=== PATIENT | female | born 2000 | race Caucasian/White ===

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

== ENCOUNTER 2021-05-02 21:38 | Emergency (ER) | payer OTHER ==
[~2021-05-02] VITALS: Ht 149.9 cm; Wt 62.2 kg
[~2021-05-02 21:38] MED LIST changes: +METO5TAB55 PO
[2021-05-02 21:49] VITALS: BP 123/59
--- NOTE | 2021-05-02 22:20 | PHYS DOC ---
Past History Past Medical History: No Pertinent History, Other Additional Past Medical Histor: COVID + Past Surgical History: Alcohol Use: None Adult General Chief Complaint Chief Complaint: POST-OP PROBLEM HPI HPI Patient is a otherwise healthy 21-year-old female who presents for a wound check. States she had a 2 weeks ago and was told that she had dissolvable sutures and Steri-Strips in place. States she had a wound check earlier today with a circuit judge but noticed a tiny bit of bleeding around one of the suture sites and decided to come in. Denies any fevers, chest pain, shortness of breath, abdominal pain, nausea, vomiting. Denies any vaginal bleeding, discharge or pain. Review of Systems Review of Systems Review of systems otherwise unremarkable except noted in HPI Allergies Allergies Allergies Coded Allergies Type Severity Reaction Last Updated Verified No Known Drug Allergies 08/10/20 No Physical Exam Physical Exam Constitutional: Well developed, well nourished, no acute distress, non-toxic appearance. [] HENT: Normocephalic, atraumatic, Eyes: conjunctiva normal, no discharge. [] Cardiovascular:Heart rate regular rhythm, no murmur [] Lungs & Thorax: Bilateral breath sounds clear to auscultation [] Abdomen: scar with Steri-Strips in place, removed and surgical incision clean, dry and intact with no erythema, or palpable masses, soft, no tenderness, no masses, no pulsatile masses. [] Skin: Warm, dry, no erythema, no rash. [] Back: No tenderness, no CVA tenderness. [] Extremities: No tenderness, no cyanosis, no clubbing, ROM intact, no edema. [] Neurologic: Alert and oriented X 3, no focal deficits noted. [] Psychologic: Affect normal, judgement normal, mood normal. [] Current Patient Data Vital Signs Vital Signs Date Time Temp Pulse Resp B/P (MAP) Pulse Ox O2 Delivery O2 Flow Rate FiO2 05/02/21 21:49 97.8 76 18 123/59 (80) 98 Room Air EKG EKG [] Radiology/Procedures Radiology/Procedures [] Heart Score C/O Chest Pain: No Risk Factors: Risk Factors: DM, Current or recent (<one month) smoker, HTN, HLP, family history of CAD, obesity. Risk Scores: Risk Factors: DM, Current or recent (<one month) smoker, HTN, HLP, family history of CAD, obesity. Course & Med Decision Making Course & Med Decision Making Patient is a 21-year-old female who presents for wound check Vital signs not concerning. Physical exam noted above Reassured patient that wound looks clean, dry intact with no signs of infection. Advised to follow-up in the morning with her [employer] REPAIRER/surgeon to update on her ED visit and set up a follow-up as needed. Gave return precautions to the ED. Patient grateful, verbalized understanding and agreed with plan of discharge. [] Dragon Disclaimer Dragon Disclaimer This electronic medical record was generated, in whole or in part, using a voice recognition dictation system. Departure Departure: Impression: Primary Impression: Visit for wound check Disposition: HOME / SELF CARE / HOMELESS Condition: GOOD Referrals: CHANI SPIVEY MD (PCP) Patient Instructions: Wound Check Additional Instructions: Thank you for coming into the emergency department today and allowing us to take care of you. Please read the attached information carefully. As discussed, your wound looks clean, dry intact with no signs of infection or drainage. Please follow-up with your primary care physician or your surgeon, or even your circuit judge to discuss your ED visit and set up a follow-up visit. Please come back to the ED with new or concerning symptoms as we discussed. ELYSE ARCHER MD May 02, 2021 22:19
== END 2021-05-02 22:26 | disposition home or self-care (01) ==
LOC: ER 21:38
DX: Z48.01 Encounter for change or removal of surgical wound dressing (principal)
CPT/HCPCS: 99281-25

== ENCOUNTER 2021-05-16 10:08 | Emergency (ER) | payer OTHER ==
[~2021-05-16] VITALS: Ht 149.9 cm; Wt 63.7 kg
[2021-05-16 10:25] VITALS: BP 104/68
[2021-05-16] MEDS ORDERED: CEPH500C PO (11:50)
[2021-05-16] MEDS ORDERED: MUPI22OI2 TP (11:50)
--- NOTE | 2021-05-16 11:50 | PHYS DOC ---
Past History Past Medical History: No Pertinent History, Other Additional Past Medical Histor: COVID + (BRISA HUITRON APRN) Past Surgical History: (BRISA HUITRON APRN) Alcohol Use: None (BRISA HUITRON APRN) Adult General Chief Complaint Chief Complaint: POST-OP PROBLEM HPI HPI Patient is a 21-year-old female presents emergency department concerning an infection to her incision site she has noticed over the past week. Patient reports a malodorous drainage from her incision site. Patient fears it may be an infection. Patient reports having her baby by on April 172020, is currently breast-feeding, denies abdominal pain or discomfort, denies urinary pressure, increased urinary frequency, urinary burning. Patient denies vaginal discharge, denies STI concerns. Patient denies nausea or vomiting. Denies fevers or chills at home. Patient denies other physical complaints or physical concerns, denies allergies to medications, denies prescription medications. Reports her next OB appointment checkup is on June 012020. (BRISA HUITRON APRN) Review of Systems Review of Systems 14 body systems of review of systems have been reviewed. See HPI for pertinent positives and negative responses, otherwise all other systems are negative, nonpertinent or noncontributory. Constitutional: Negative except as outlined in HPI above. Skin: Negative except as outlined in HPI above. Eyes: Negative except as outlined in HPI above. HENT: Negative except as outlined in HPI above. Respiratory: Negative except as outlined in HPI above. Cardiovascular: Negative except as outlined in HPI above. GI: Negative except as outlined in HPI above. : Negative except as outlined in HPI above. Musculoskeletal: Negative except as outlined in HPI above. Integument: Negative except as outlined in HPI above. Neurologic: Negative except as outlined in HPI above. Endocrine: Negative except as outlined in HPI above. Lymphatic: Negative except as outlined in HPI above. Psychiatric: Negative except as outlined in HPI above. (BRISA HUITRON APRN) Allergies Allergies Allergies Coded Allergies Type Severity Reaction Last Updated Verified No Known Drug Allergies 08/10/20 No (BRISA HUITRON APRN) Physical Exam Physical Exam Constitutional: Well developed, well nourished, no acute distress, non-toxic appearance. 21-year-old female in no apparent distress. HENT: Normocephalic, atraumatic. Eyes: Conjunctiva normal, no discharge. Neck: Normal range of motion, no stridor. Cardiovascular: No cyanosis appreciated, distal cap refill less than 2 seconds. Lungs & Thorax: Patient is in no respiratory distress, no audible adventitious lung sounds appreciated. Abdomen: Nontender, normal bowel sounds all 4 quadrants, scar well- healing edges well approximated, there is an area of erythema with well demarcated borders on the right lateral aspect of scar, no skin excoriation, there is a small lesion in the center measuring 1 cm in diameter with malodorous white drainage. Skin: Warm, dry, no erythema, no rash. See abdomen section for focused skin examination. Back: No tenderness, no deformities. Extremities: No tenderness, no cyanosis, no clubbing, ROM intact, no edema. [] Neurologic: Alert and oriented X 3, normal motor function, normal sensory function, no focal deficits noted. Psychologic: Affect normal, judgement normal, mood normal. (BRISA HUITRON APRN) EKG EKG [] (BRISA HUITRON APRN) Radiology/Procedures Radiology/Procedures [] (BRISA HUITRON APRN) Heart Score C/O Chest Pain: No Risk Factors: Risk Factors: DM, Current or recent (<one month) smoker, HTN, HLP, family history of CAD, obesity. Risk Scores: Risk Factors: DM, Current or recent (<one month) smoker, HTN, HLP, family history of CAD, obesity. (BRISA HUITRON APRN) Course & Med Decision Making Course & Med Decision Making Pertinent Labs and Imaging studies reviewed. (See chart for details) 21-year-old female, vital signs reviewed as reported by ED lump machine operator oral temp 97.9, heart rate 83 bpm, blood pressure 104/68, 98% oxygen saturation on room air. Presents to the emergency department concerning an infection to her C- section incision site. Physical examination concerning for cellulitis infection of site. Discussed with patient will start on Keflex regimen, mupirocin ointment regimen, discussed medications are safe during breast- feeding, strict follow-up with primary care soon for reevaluation of infection site. Discussed wound care precautions, return to ER precaution concerns. Patient is amenable to and gave verbal understanding of ED discharge planning. Discussed with the patient all findings and diagnostic testing as well as the need to follow-up with their primary care provider for further evaluation and treatment or return to the ED if any new or worsening symptoms. Strict return precautions were also discussed at length, the patient voiced understanding and agreement with the discharge planning. The patient was nontoxic in appearance, in no apparent distress, and hemodynamically stable at the time of disposition. Diagnosis cellulitis, this does not appear to be a yeast infection source. (BRISA HUITRON APRN) Dragon Disclaimer Dragon Disclaimer This electronic medical record was generated, in whole or in part, using a voice recognition dictation system. (BRISA HUITRON APRN) Departure Departure: Impression: Primary Impression: section wound complication Disposition: HOME / SELF CARE / HOMELESS Condition: GOOD Referrals: CHANI SPIVEY MD (PCP) Patient Instructions: Cellulitis Additional Instructions: You are seen today for complications of your incision site. This appears to be a cellulitis type infection. As we discussed I am starting you on an antibiotic Keflex that you will take 4 times a day for the next 7 days, I am also prescribing you a topical ointment that you will place a small application 3 times a day for the next 7 days. Cleanse the infection site daily with mild soap and water and dry thoroughly prior to application of ointment. Please f ollow-up with your primary care CATERERS HELPER for reevaluation of this incision site infection. Continue to breast-feed as normal. Return to the emergency department for worsening symptoms or other concerns. EMERGENCY DEPARTMENT GENERAL DISCHARGE INSTRUCTIONS Thank you for coming to [facility] (ED) today and trusting us with you care. We trust that you had a positivie experience in our Emergency Department. If you wish to speak to the department management, you may call the director at [phone]. YOUR FOLLOW UP INSTRUCTIONS ARE FOLLOWS: 1. Do you have a private Doctor? If you do not have a private doctor, please ask for a resource list of physicians or clinics that may be able to assist you with follow up care. 2. The Emergency Physician has interpreted your x-rays. The X-Ray specialist will also review them. If there is a change in the findings, you will be notified in 48 hours when at all possible. 3. A lab test or culture has been done, your results will be reviewed and you will be notified if you need a change in treatment. ADDITIONAL INSTRUCTIONS AND INFORMATION: 1. Your care today has been supervised by a physician who is specially trained in emergency care. Many problems require more than one evaluation for a complete diagnosis and treatment. We recommend that you schedule your follow up appointment as recommended to ensure complete treatment of you illness or injury. If you are unable to obtain follow up care and continue to have a problem, or if your condition worsens, we recommend that you return to the ED. 2. We are not able to safely determine your condition over the phone nor are we able to give sound medical advice over the phone. For these safety reasons, if you call for medical advice we will ask you to come to the ED for further evaluation. 3. If you have any questions regarding these discharge instructions please call the ED at [phone]. SAFETY INFORMATION: In the interest of safety, wellness, and injury prevention; we encourage you to wear your sealbelt, if you smoke; quite smoking, and we encourage family to use a protective helmet for bicycling and other sporting events that present an increased risk for head injury. IF YOUR SYMPTOMS WORSEN OR NEW SYMPTOMS DEVELOP, OR YOU HAVE CONCERNS ABOUT YOUR CONDITION; OR IF YOUR CONDITION WORSENS WHILE YOU ARE WAITING FOR YOUR FOLLOW UP APPOINTMENT; EITHER CONTACT YOUR PRIMARY CARE DOCTOR, THE PHYSICIAN WHOSE NAME AND NUMBER YOU WERE GIVEN, OR RETURN TO THE ED IMMEDIATELY. Scripts Mupirocin (MUPIROCIN) 22 Gm Oint...g. 1 DES TP TID for skin infection, #22 GM 0 Refills Apply a small application over infection site 3 times a day after daily cleansing for the next 7 days. Prov: BRISA HUITRON APRN 05/16/21 Cephalexin (KEFLEX) 500 Mg Capsule 1 CAP PO QID for skin infection for 7 Days, #28 CAP 0 Refills Prov: BRISA HUITRON APRN 05/16/21 Attending Signature Attending Signature I have reviewed the PA/THERMAL CUTTING TRACER MACHINE OPERATOR's note and plan of care. I was available for consultation as needed during the patient's visit in the emergency department. I agree with the clinical impression, plan, and disposition. (BRISA FORTE DO) BRISA HUITRON APRN May 16, 2021 11:50 BRISA FORTE DO May 17, 2021 15:38
== END 2021-05-16 12:05 | disposition home or self-care (01) ==
LOC: ER 10:08
DX: O90.0 Disruption of cesarean delivery wound (principal)
CPT/HCPCS: 99283-25